=== PATIENT | female | born 1970 | race Two or more races ===

== ENCOUNTER 2021-02-05 04:16 | Emergency (ER) | payer OTHER ==
[~2021-02-05] VITALS: Ht 154.9 cm; Wt 63.5 kg
[2021-02-05] MEDS ORDERED: EFFER-K 10 MEQ10 MEQ (04:26)
[2021-02-05] MEDS ORDERED: PROAIR HFA8.5 GM (04:26)
[2021-02-05] MEDS ORDERED: TESSALON PERLE100 M1 PO (07:36)
[2021-02-05] MEDS ORDERED: ZITHROMAX500 MG PO (07:36)
== END 2021-02-05 08:13 | disposition home or self-care (01) ==
LOC: ER 04:16
DX: J06.9 Acute upper respiratory infection, unspecified (principal)

== ENCOUNTER 2022-03-25 13:55 | Emergency (ER) | payer OTHER ==
[~2022-03-25] VITALS: Ht 157.5 cm; Wt 59.0 kg
[~2022-03-25 13:55] MED LIST: EFFER-K 10 MEQ10 MEQ; PROAIR HFA8.5 GM; TESSALON PERLE100 M1 PO; ZITHROMAX500 MG PO
[2022-03-25] MEDS ORDERED: ZITHROMAX500 MG PO (19:23)
[2022-03-25] MEDS ORDERED: TUSNEL LIQUID178 ML PO (19:23)
[2022-03-25] MEDS ORDERED: DOLOGEN CAPLET1 EACH PO (19:23)
[2022-03-25] MEDS ORDERED: BENZONATATE200 M1 PO (19:33)
== END 2022-03-25 19:57 | disposition home or self-care (01) ==
LOC: ER 13:55
DX: U07.1 COVID-19 (principal); K21.9 Gastro-esophageal reflux disease without esophagitis; K57.92 Diverticulitis of intestine, part unspecified, without perforation or abscess without bleeding; E87.6 Hypokalemia; J45.909 Unspecified asthma, uncomplicated; M48.02 Spinal stenosis, cervical region; Z88.0 Allergy status to penicillin; Z88.6 Allergy status to analgesic agent; Z88.1 Allergy status to other antibiotic agents